=== PATIENT | female | born 1955 | race Caucasian/White ===

== ENCOUNTER → 2016-12-21 | Outpatient (CLI) | payer MEDICARE ==
--- NOTE | 2016-12-22 15:48 | RAD ---
DATE: 12/21/2016 EXAM: MAMMO SHEILA SCREENING BILATERAL Bilateral Screening Digital 2D and 3D Mammogram HISTORY: Screening Mammogram COMPARISON: Screening mammogram 01/28/2015, 05/14/2013 This study was interpreted with the benefit of Computerized Aided Detection (CAD). The breast parenchyma is primarily fatty replaced. Breast parenchyma level density A. FINDINGS: Bilateral digital 2-D and 3-D tomosynthesis CC and MLO views. Focal fat necrosis in the upper outer left breast. No suspicious mass, calcification or architectural distortion. No significant change from prior examination. IMPRESSION: No mammographic evidence of malignancy. Recommend routine screening mammogram in 12 months. BI-RADS CATEGORY: 2 BENIGN FINDING(S) RECOMMENDED FOLLOW-UP: 12M 12 MONTH FOLLOW-UP PQRS compliance statement: Patient information was entered into a reminder system with a target due date for the next mammogram. Mammography is a sensitive method for finding small breast cancers, but it does not detect them all and is not a substitute for careful clinical examination. A negative mammogram does not negate a clinically suspicious finding and should not result in delay in biopsying a clinically suspicious abnormality. "Our facility is accredited by the [employer] Mammography Program."
== END | disposition home or self-care (01) ==
LOC: MAMMO 10:44
PROVIDERS: ATTEND Nurse Practitioner Family
DX: Z12.31 Encounter for screening mammogram for malignant neoplasm of breast (principal)
CPT/HCPCS: 77063; G0202; 77067

== ENCOUNTER → 2017-04-20 | Outpatient (CLI) | payer MEDICARE ==
--- NOTE | 2017-04-20 15:23 | RAD ---
Bone densitometry scan, 04/20/2017: History: Ovarian failure, osteoporosis screening The lumbar spine and right hip were examined utilizing a DEXA technique. The bone mineral density the lumbar spine as measured from the L1-L4 levels is 1.32 g/sq cm. This yields a T score of 1.2 which is in the normal range. The total T score at the right hip is -1.6 compatible with osteopenia. There is hypertrophic degenerative change in the lumbar spine which is probably elevating the lumbar spine measurement into the normal range. The hip bone density measurements probably more accurately reflects the patient's overall bone density status. IMPRESSION: Osteopenia at the right hip.
== END | disposition home or self-care (01) ==
LOC: DXRAD 11:18
PROVIDERS: ATTEND Nurse Practitioner Family
DX: Z13.820 Encounter for screening for osteoporosis (principal); M85.88 Other specified disorders of bone density and structure, other site; E28.39 Other primary ovarian failure; Z78.0 Asymptomatic menopausal state
CPT/HCPCS: 77080

== ENCOUNTER 2019-05-26 17:39 | Emergency (ER) | payer MEDICARE ==
[~2019-05-26] VITALS: Ht 165.1 cm; Wt 67.0 kg
--- NOTE | 2019-05-26 18:13 | PHYS DOC ---
Past History Past Medical History: Arthritis, Fibromyalgia, Other Additional Past Medical Histor: NEUROPATHY Past Surgical History: Cancer Surgery, Cholecystectomy, Other Additional Past Surgical Histo: LEFT KNEE/RIGHT ROTATOR CUFF Alcohol Use: None RISKS/ALTERNATIVES Risks/Alternatives Risks and alternatives of this type of sedation and procedure discussed with: RISK/ALTERNATIVES DISCUSSED: Patient H & P ON CHART H & P H & P on chart and reviewed for co-morbid conditions and appropriate labs. H&P ON CHART: Yes STATUS PREG STATUS ASSESSED: N/A MEDS/ALLERGIES REVIEWED Meds/Allergies Reviewed Medications and Allergies including time and route of recently administered narcotics and sedatives. MEDS/ALLERGIES REVIEWED: Yes ASA RATING ASA RATING: I AIRWAY ASSESSMENT Airway Assessment Airway patency, oral function limitations, presence of caps, crowns, dentures, partials, and ability to extend neck assessed. AIRWAY ASSESSMENT: Yes MALLAMPATI SCORE MALLAMPATI SCORE: I PRE-SEDATION ASSESSMENT PRE-SEDATION PHYSICAL: Yes General Adult EDM: Chief Complaint: KNEE INJURY HPI: HPI: 64-year-old female presents via EMS with right knee pain. The patient was walking up 2 steps when her knee "locked up". It is straightened out and externally rotated at the knee. She states that it will not bend. At rest it is not very painful, but any flexion is painful. The patient has never had surgery on this knee. She has never had a dislocation or fracture in this leg. She is not had a lockup like this before. Patient denies any other injuries or complaints at this time. Review of Systems: Review of Systems: Constitutional: Denies fever or chills Eyes: Denies change in visual acuity HENT: Denies nasal congestion or sore throat Respiratory: Denies cough or shortness of breath Cardiovascular: Denies chest pain or edema GI: Denies abdominal pain, nausea, vomiting, bloody stools or diarrhea : Denies dysuria Musculoskeletal: Right knee pain Integument: Denies rash Neurologic: Denies headache, focal weakness or sensory changes Endocrine: Denies polyuria or polydipsia Lymphatic: Denies swollen glands Psychiatric: Denies depression or anxiety Heart Score: Risk Factors: Risk Factors: DM, Current or recent (<one month) smoker, HTN, HLP, family history of CAD, obesity. Risk Scores: Score 0 - 3: 2.5% MACE over next 6 weeks - Discharge Home Score 4 - 6: 20.3% MACE over next 6 weeks - Admit for Clinical Observation Score 7 - 10: 72.7% MACE over next 6 weeks - Early Invasive Strategies Allergies: Allergies: Allergies Coded Allergies Type Severity Reaction Last Updated Verified No Known Drug Allergies 05/26/19 No Physical Exam: PE: Constitutional: Well developed, well nourished, no acute distress, non-toxic appearance. [] HENT: Normocephalic, atraumatic, bilateral external ears normal, oropharynx moist, no oral exudates, nose normal. [] Eyes: PERRLA, EOMI, conjunctiva normal, no discharge. [] Neck: Normal range of motion, no tenderness, supple, no stridor. [] Cardiovascular:Heart rate regular rhythm, no murmur [] Lungs & Thorax: Bilateral breath sounds clear to auscultation [] Abdomen: Bowel sounds normal, soft, no tenderness, no masses, no pulsatile masses. [] Skin: Warm, dry, no erythema, no rash. [] Back: No tenderness, no CVA tenderness. [] Extremities: Right lower leg externally rotated, tenderness in the suprapatellar region, obvious deformity or malalignment [] Neurologic: Alert and oriented X 3, normal motor function, normal sensory function, no focal deficits noted. [] Psychologic: Affect normal, judgement normal, mood normal. [] Current Patient Data: Vital Signs: Vital Signs Date Time Temp Pulse Resp B/P (MAP) Pulse Ox O2 Delivery O2 Flow Rate FiO2 05/26/19 17:45 99.0 85 20 137/70 (92) 97 Room Air EKG: EKG: [] Radiology/Procedures: Radiology/Procedures: [] Impressions: Exam: Right knee 3 views INDICATION: Right knee deformity TECHNIQUE: Frontal, lateral and oblique views of the right knee Comparisons: None FINDINGS: Bone mineralization is normal. No acute or healed fractures. Soft tissues are unremarkable. Joint spaces are well-maintained. IMPRESSION: No acute osseous abnormality. Electronically signed by: Lisy Dominguez MD (05/26/2019 6:26 PM) [id number] DICTATED AND SIGNED BY: LISY DOMINGUEZ MD DATE: 05/26/19 1826 CC: DANNY SCHWAB DO; HUONG VU APRN ~ Course & Med Decision Making: Course & Med Decision Making Pertinent Labs and Imaging studies reviewed. (See chart for details) The radiologist read the x-ray is normal, but I am highly suspicious for a suprapatellar dislocation. This is based on her exam and the appearance of the knee. We will go ahead and attempt a procedural sedation reduction. The patient has had anesthesia of different kinds in the past and had no com plications. She has no medication allergies. She has agreed to this procedure. I was able to successfully relocate her patella. See note below for more details. Repeat films showed improvement from previous. I have advised that the patient follow-up on Tuesday with her primary care physician and discuss an appropriate patellar isolation brace so that she does not have to wear a full immobilizer. She can discuss physical therapy and/or orthopedic follow-up. She is stable for discharge at this time. Patella relocation procedure: Verbal consent was obtained from the patient for procedural sedation and manual relocation of a superior patella dislocation. An IV was established. A liter of normal saline was started. The patient was given 1 mg doses of Versed every 2 to 3 minutes. A total of 4 mg was given to achieve effect. I then manipulated the patella left and right until it relocated inferiorly. There was a palpable movement of the patella. The divot in the skin was resolved. The patient was able to flex and extend her leg. She was placed in a knee immobilizer and postreduction x-rays were ordered. There were no complications. The patient tolerated the procedure well. [] Dragon Disclaimer: Dragon Disclaimer: This electronic medical record was generated, in whole or in part, using a voice recognition dictation system. Departure Departure: Impression: Primary Impression: Dislocation of patella, right, closed Qualified Codes: S83.004A - Unspecified dislocation of right patella, initial encounter Disposition: HOME, SELF-CARE Condition: IMPROVED Referrals: HUONG VU APRN (PCP) Patient Instructions: Patellar Dislocation DANNY SCHWAB DO May 26, 2019 18:13
--- NOTE | 2019-05-26 18:29 | RAD ---
Exam: Right knee 3 views INDICATION: Right knee deformity TECHNIQUE: Frontal, lateral and oblique views of the right knee Comparisons: None FINDINGS: Bone mineralization is normal. No acute or healed fractures. Soft tissues are unremarkable. Joint spaces are well-maintained. IMPRESSION: No acute osseous abnormality. Electronically signed by: Mrerill Heredia MD (05/26/2019 6:26 PM) [id number]
[2019-05-26] MEDS ORDERED: MIDAZOLAM HCL PF 5 MG/5 ML VIAL. IV ONE (19:00)
--- NOTE | 2019-05-26 19:46 | RAD ---
Exam: Right knee 4 views INDICATION: Post patellar reduction TECHNIQUE: Frontal, lateral, oblique and sunrise views of the right knee Comparisons: Radiographs earlier today FINDINGS: Bone mineralization is normal. No acute or healed fractures. Soft tissues are unremarkable. Moderate osteophytic change at the patellofemoral joint space. IMPRESSION: No patellar dislocation. Electronically signed by: Merrill Heredia MD (05/26/2019 7:43 PM) [id number]
[2019-05-26 20:06] VITALS: BP 121/70
== END 2019-05-26 20:20 | disposition home or self-care (01) ==
LOC: ER 17:39
DX: S82.091A Other fracture of right patella, initial encounter for closed fracture (principal); M19.90 Unspecified osteoarthritis, unspecified site; M79.7 Fibromyalgia; Z85.9 Personal history of malignant neoplasm, unspecified; Z90.49 Acquired absence of other specified parts of digestive tract; Z98.890 Other specified postprocedural states; X58.XXXA Exposure to other specified factors, initial encounter; Y93.89 Activity, other specified; Y92.89 Other specified places as the place of occurrence of the external cause; Y99.8 Other external cause status
CPT/HCPCS: 27560; 73562; 73564; 99285; J2250; 99152

== ENCOUNTER → 2020-01-01 | Outpatient (CLI) | payer MEDICARE ==
--- NOTE | 2020-01-01 17:13 | RAD ---
L-spine 3 views INDICATION: Low back pain. COMPARISON: 05/05/2015. FINDINGS: Mild levoscoliosis of the lumbar spine is evident, similar to prior with apex at L2-L3 due to primarily due to asymmetric right-sided disc degenerative change at L1-L2 in the setting of multilevel lumbar spinal degenerative spondylosis. Subtle anterolisthesis of L3 on L4 is also suggested on the lateral view as well as retrolisthesis of L1 on L2. No acute fracture or aggressive appearing bony lesions are evident. Bones are diffusely demineralized. There are disc degenerative changes most conspicuously at L2-L3 with marked asymmetric right-sided disc space narrowing at that level but multilevel disc degenerative change is present with osteophytic spurring present at L3-L4, L2-L3, L1-L2 and T12-L1. Facet hypertrophic changes also present from the L2-L3 facet joints through the lumbosacral junction. Soft tissues show aortic calcifications. IMPRESSION: Similar-appearing multilevel lumbar spinal degenerative spondylosis and scoliosis with no acute fracture or aggressive appearing bony lesions. Electronically signed by: Karen Tamez MD (01/01/2020 5:10 PM) [id number]
== END ==
LOC: DXRAD 15:57
PROVIDERS: ATTEND Family Medicine
DX: M47.816 Spondylosis without myelopathy or radiculopathy, lumbar region (principal); M41.86 Other forms of scoliosis, lumbar region; M43.16 Spondylolisthesis, lumbar region
CPT/HCPCS: 72100

== ENCOUNTER → 2020-12-22 | Outpatient (CLI) | payer MEDICARE ==
--- NOTE | 2020-12-22 17:16 | RAD ---
XR BILAT FEET 3 VIEWS History: Bilateral foot pain. Comparison: None. Technique: 3 weightbearing views of the bilateral feet. Findings: Decreased osseous mineralization. No acute fracture or dislocation. Postsurgical features of the left first ray from first metatarsal and great toe proximal phalanx osteotomies with screw fixation. Bila teral advanced pes planus. Left first and second toe varus alignment. Right hallux valgus. Bilateral multiple hammertoe deformities. Advanced degenerative changes greatest at the right first metatarsoph alangeal joint. Soft tissues are unremarkable. Impression: 1. Bilateral foot degenerative changes as above Electronically signed by: Migue Price MD (12/22/2020 5:14 PM) [id number]
== END ==
LOC: RAD 10:49
PROVIDERS: ATTEND Podiatrist
DX: M19.071 Primary osteoarthritis, right ankle and foot (principal); M19.072 Primary osteoarthritis, left ankle and foot; M21.42 Flat foot [pes planus] (acquired), left foot; M21.41 Flat foot [pes planus] (acquired), right foot; M20.11 Hallux valgus (acquired), right foot; M20.42 Other hammer toe(s) (acquired), left foot; M20.41 Other hammer toe(s) (acquired), right foot
CPT/HCPCS: 73630-50